=== PATIENT | female | born 1930 | race Caucasian/White ===

== ENCOUNTER 2016-06-21 05:47 | Day surgery (SDC) | payer MEDICARE, BC ==
[2016-06-19 13:43] LABS: HEMATOCRIT 40.6 % (36.0-48.0); HEMOGLOBIN 13.6 g/dL (12.0-16.0)
[2016-06-19 14:00] LABS: BUN (BLOOD UREA NITROGEN) 20 MG/DL (6-23); CALCIUM, SERUM 9.5 MG/DL (8.5-10.4); CHLORIDE, SERUM 104 MMOL/L (96-112); CO2 (CARBON DIOXIDE) 33 MMOL/L (24-34); CREATININE 1.04 MG/DL (0.55-1.02); GFR AFRICAN AMERICAN 58 ML/MIN (>=60); GFR NON AFRICAN AMERICAN 50 ML/MIN (>=60); GLUCOSE, SERUM 74 MG/DL (60-99); POTASSIUM, SERUM 4.5 MMOL/L (3.5-5.3); SODIUM, SERUM 143 MMOL/L (135-148)
--- NOTE | ~2016-06-21 | OP ---
Record Of Operation [facility] [address] [place]. [address] NAME: BEE LEHMAN : 34 STATUS : [facility]#: [id number] AGE: 85 ADM/REG DATE : 06/21/16 MR#: [id number] REPORT SERV DATE: 06/21/16 DICTATED BY: ADAM BEAULIEU DATE: 06/21/16 REPORT STATUS : Draft TRANSCRIBED BY: MODL DATE: 06/21/16 DATE OF PROCEDURE: 06/21/2016 ANESTHESIA: General. COMPLICATIONS: None. ESTIMATED BLOOD LOSS: 10 mL. PREOPERATIVE DIAGNOSIS: Postmenopausal bleeding. POSTOPERATIVE DIAGNOSIS: Postmenopausal bleeding. OPERATION: Hysteroscopy, D and C. FINDINGS: Moderately proliferative endometrium. PROCEDURE IN DETAIL: The patient was taken to the operating room and placed on the operating table in the Ion stirrups. After adequate anesthesia, the patient was prepped and draped in usual sterile fashion. The cervix was grasped with a single-tooth tenaculum and dilated to a #8 Hegar dilator. Hysteroscopy was performed with water as a filling media. The endometrial cavity was moderately proliferative. Sharp curettage was performed with moderate tissue return. The patient tolerated the procedure well and was taken to the recovery room in stable condition. MANNY Adam Beaulieu M.D. / [id number] CC: Tootie Casas M.D.
[~2016-06-21 05:47] MED LIST: APRES50 PO; ASAB PO; COREG6 PO; CRESTOR10 PO; CRESTOR40 MG PO; HYDROCHLOROT12.5 MG PO; LOFIB160 PO; MOMUD PO; MULTIPLE VIT PO; PEP20 PO; PLAVIX PO; PRESERVISION A1 EAC1 PO; PRIN10 PO; PRIN2.5 PO; PROTONIX PO; PROZAC PO; TRICOR145 PO
[2016-06-21 06:44] LABS: ALBUMIN 3.6 G/DL (3.5-5.0); DIRECT BILIRUBIN 0.1 MG/DL (0.0-0.4); INDIRECT BILIRUBIN(NOT ORDER) 0.4 MG/DL (0.1-0.9); TOTAL BILIRUBIN 0.5 MG/DL (0-1.2); TOTAL PROTEIN 6.8 G/DL (6.0-8.5)
[2016-07-09] MEDS ORDERED: PCET PO (10:51)
[2016-07-09] MEDS ORDERED: COMP10B PO (10:52)
[2016-07-09] MEDS ORDERED: PLAVIX PO (10:53)
== END 2016-06-21 10:57 | disposition home or self-care (01) ==
LOC: SDC 05:47
PROVIDERS: Obstetrics & Gynecology Gynecology
PROC: 0UDB8ZX Extraction of Endometrium, Via Natural or Artificial Opening Endoscopic, Diagnostic (ICD-10-PCS; principal; 2016-06-21 07:15)
DX: C54.1 Malignant neoplasm of endometrium (principal); I10 Essential (primary) hypertension; E78.5 Hyperlipidemia, unspecified; F41.9 Anxiety disorder, unspecified; F32.9 Major depressive disorder, single episode, unspecified; Z95.1 Presence of aortocoronary bypass graft; E78.00 Pure hypercholesterolemia, unspecified; M19.90 Unspecified osteoarthritis, unspecified site; K21.9 Gastro-esophageal reflux disease without esophagitis; Z88.5 Allergy status to narcotic agent; Z88.8 Allergy status to other drugs, medicaments and biological substances; Z79.82 Long term (current) use of aspirin; Z79.899 Other long term (current) drug therapy; Z90.49 Acquired absence of other specified parts of digestive tract; Z98.890 Other specified postprocedural states
CPT/HCPCS: 80048; 80076; 85014; 85018; 88305; 93005; J2405; J3010